=== PATIENT | male | born 1990 | race African-American/Black ===

== ENCOUNTER 2017-12-07 16:54 | Emergency (ER) ==
[2017-12-07 17:04] VITALS: BP 171/100; TEMP 98.8; BMI 24.0
--- NOTE | 2017-12-07 18:16 | ED.PDOC ---
General ED Provider: Dr. CARLA JORGE Chief Complaint: Nausea/Vomiting Stated Complaint: CC: Nausea and Vomiting. HPI: Onset 3 days. Unable to keep liquids down. No solid foods for 3 days. Feeling lousy. Denies cough of congestion. Denies Fever chills or Night sweats Time Seen by Physician: 18:05 Mode of Arrival: Walk-In Information Source: Patient Exam Limitations: No limitations Nursing and Triage Documentation Reviewed and Agree: Yes Reviewed sepsis parameters & appropriate labs ordered?: Yes System Inflammatory Response Syndrome: Not Applicable Sepsis Protocol: For patient's 13 years and over: Temp is 96.8 and below OR 101 and greater Pulse >90 BPM Resp >20/minute Acutely Altered Mental Status Are patient's symptoms suggestive of a new infection, such as: -Pneumonia -Skin, Soft Tissue -Endocarditis -UTI -Bone, Joint Infection -Implantable Device -Acute Abdominal Infection -Wound Infection -Meningitis -Blood Stream Catheter Infection -Unknown GI Complaint Exam - Vomiting/Diarrhea Complaint/Exam Onset/Duration: 3 days Symptoms Are: Still present Episodes of Vomiting over last 24 Hours: 3 Episodes of Diarrhea Over Last 24 Hours: 0 Initial Severity: Severe Current Severity: Moderate Character of Vomiting: Reports: Bilious Aggravating: Reports: Liquids Alleviating: Reports: None Associated Signs and Symptoms: Reports: Light-headedness Related History: Denies: Similar episode, Recent antibiotics Non-GI Risk Factors: Denies: Vomiting due to neuro, Vomiting due to cardiac Surgical Obstruction Risk Factors: Reports: None Related Surgical History: Reports: None Abdominal Findings: Present: None. Absent: Abdominal distention, Rebound tenderness, Peritoneal signs, McBurney's Point tender, CVA Tenderness, Inguinal swelling Kussmaul Respirations Present: No Differential Diagnoses: Bowel Obstruction, Gastritis, Viral Gastroenteritis Review of Systems - Review Of Systems Constitutional: Reports: No symptoms Eyes: Reports: No symptoms Ears, Nose, Mouth, Throat: Reports: No symptoms Respiratory: Reports: No symptoms Cardiac: Reports: No symptoms GI: Reports: No symptoms, Nausea, Poor fluid intake, Vomiting : Reports: No symptoms Musculoskeletal: Reports: No symptoms Skin: Reports: No symptoms Neurological: Reports: No symptoms Endocrine: Reports: No symptoms Hematologic/Lymphatic: Reports: No symptoms All Other Systems: Reviewed and Negative Past Medical History - Past Medical History Previously Healthy: Yes Endocrine: Reports: None Cardiovascular: Reports: None Respiratory: Reports: None Hematological: Reports: None Gastrointestinal: Reports: None Genitourinary: Reports: None Neuro/Psych: Reports: None Musculoskeletal: Reports: None Cancer: Reports: None - Surgical History General Surgical History: Reports: None - Family History Family History: Reports: None - Social History Smoking Status: Never smoker Hx Substance Use: No Alcohol Screening: Occasionally Physical Exam - Physical Exam Appearance: Well-appearing, No pain distress, Well-nourished Eyes: TENZIN, EOMI, Conjunctiva clear ENT: Ears normal, Nose normal, Oropharynx normal Respiratory: Airway patent, Breath sounds clear, Breath sounds equal, Respirations nonlabored Cardiovascular: RRR, Pulses normal, No rub, No murmur GI/: Soft, Nontender, No masses, No Organomegaly, Bowel sounds hyperactive Musculoskeletal: Normal strength, ROM intact, No edema, No calf tenderness Skin: Warm, Dry, Normal color Neurological: Sensation intact, Motor intact, Reflexes intact, Cranial nerves intact, Alert, Oriented Psychiatric: Affect appropriate, Mood appropriate Interpretation - Radiology Interpretation Radiology Interpretation By: Radiologist Radiology Results: No acute changes Xray Comments: abdom xray Re-Evaluation - Re-Evaluation Time of Re-Evaluation: 19:30 Status: Improved Vital Signs Stable: Yes Appearance: NAD Lungs: Clear Skin: Warm and Dry Neuro: Alert and Oriented X3 CV: RRR Additional Comments: req discharge to home-has job interview tomorrow Critical Care Note - Critical Care Note Total Time (mins): 60 (Diagnosis, treatment ) Course - Course Hematology/Chemistry: 12/07/17 18:37 12/07/17 18:37 Orders, Labs, Meds: Lab Review 12/07/17 12/07/17 12/07/17 18:37 18:37 19:37 WBC 10.60 H RBC 5.01 Hgb 15.4 Hct 44.3 MCV 88.4 MCH 30.7 MCHC 34.8 RDW Coeff of Sabrina 12.3 Plt Count 263 Immature Gran % (Auto) 0.4 Neut % (Auto) 72.2 Lymph % (Auto) 21.5 Bell % (Auto) 5.8 Eos % (Auto) 0.0 Baso % (Auto) 0.1 Immature Gran # (Auto) 0.0 Neut # (Auto) 7.7 H Lymph # (Auto) 2.3 Bell # (Auto) 0.6 Eos # (Auto) 0.0 Baso # (Auto) 0.0 Sodium 136 Potassium 3.6 Chloride 101 Carbon Dioxide 23 Anion Gap 15.6 BUN 16 Creatinine 0.90 Estimated GFR (MDRD) 122.00 BUN/Creatinine Ratio 17.77 Glucose 87 Calcium 9.8 Total Bilirubin 0.7 AST 18 ALT 12 Alkaline Phosphatase 104 Total Protein 8.3 H Albumin 4.1 Globulin 4.2 Albumin/Globulin Ratio 0.98 Lipase 11 Urine Color Yellow Urine Clarity Clear Urine pH 6.5 Ur Specific [place] 1.015 Urine Protein Negative Urine Glucose (UA) Negative Urine Ketones 3+ Urine Blood Negative Urine Nitrite Negative Urine Bilirubin Negative Urine Urobilinogen 0.2 Ur Leukocyte Esterase Negative Orders Category Date Time Status ED IV/MEDIPORT/POWERPORT .ONCE EMERGENCY 12/07/17 18:20 Active CBC W/ AUTO DIFF Stat LAB 12/07/17 18:37 Completed CMP [COMPREHENSIVE METABOLIC PANEL] Stat LAB 12/07/17 18:37 Completed LIPASE Stat LAB 12/07/17 18:37 Completed UA [URINALYSIS C & S IF INDICATED] Stat LAB 12/07/17 19:37 Completed 0.9 % Sodium Chloride [Saline Flush] MEDS 12/07/17 18:20 Ordered 1 syr IVF PRN PRN Famotidine Inj [Pepcid] MEDS 12/07/17 18:22 Discontinued 20 mg IVP ONCE STA Ondansetron HCl/Pf [Zofran 4 mg/2 ml] MEDS 12/07/17 18:22 Discontinued 4 mg IVP ONCE STA Sodium Chloride 0.9% [Sodium Chloride] 1,000 ml MEDS 12/07/17 18:20 Active IV BOLUS ABDOMEN, SERIES FLAT & UPRIGHT Stat RADS 12/07/17 18:19 Completed Medications Generic Name Dose Route Start Last Admin Trade Name Freq PRN Reason Stop Dose Admin Sodium Chloride 1,000 mls @ 500 mls/hr 12/07/17 18:20 12/07/17 18:45 Sodium Chloride IV 12/07/17 20:19 500 mls/hr BOLUS STA Administration Sodium Chloride 1 syr 12/07/17 18:20 12/07/17 18:45 Saline Flush IVF 1 syr PRN PRN Administration To flush IV Discontinued Medications Generic Name Dose Route Start Last Admin Trade Name Freq PRN Reason Stop Dose Admin Famotidine 20 mg 12/07/17 18:22 06/14/18 18:44 Pepcid IVP 12/07/17 18:23 20 mg ONCE STA Administration Ondansetron HCl 4 mg 12/07/17 18:22 12/07/17 18:43 Zofran 4 Mg/2 Ml IVP 12/07/17 18:23 4 mg ONCE STA Administration Vital Signs: Temp Pulse Resp BP Pulse Ox 12/07/17 16:55 98.8 F 81 16 171/100 H 98 Departure - Departure Time of Disposition: 20:50 Disposition: HOME SELF-CARE Discharge Problem: Gastroenteritis, Hypertension Instructions: Gastritis (ED), Gastroenteritis (ED) Condition: Good Pt referred to PMD for follow-up: Yes (1 week) IPMP verified?: No Additional Instructions: Continue clear liquids Take zofran as needed for additonal nausea or vomiting advance diet per tolerance Monitor BP as outpatient and follow up with PCP Allergies/Adverse Reactions: Allergies No Known Allergies Allergy (Unverified 12/07/17 16:57) Home Medications: Ambulatory Orders Ondansetron [Zofran Odt] 4 mg PO Q8H PRN #7 tab.rapdis 12/07/17 Disposition Discussed With: Patient
[2017-12-07] MEDS ORDERED: SODIUM CHLORIDE 1,000 ML IV STA (18:20)
[2017-12-07] MEDS ORDERED: PEPCID IVP STA (18:22)
[2017-12-07] MEDS ORDERED: ZOFRAN 4 MG/2 ML IVP STA (18:22)
--- NOTE | 2017-12-07 18:50 | DI ---
EXAM: Two-view abdomen HISTORY: Vomiting COMPARISON: None. FINDINGS: There is a normal-appearing large bowel gas pattern. There is no evidence of mass, abnorm al calcification, obstruction or free air. IMPRESSION: No acute findings
== END 2017-12-07 20:10 | disposition home or self-care (01) ==
LOC: ED 16:54
DX: K52.9 Noninfective gastroenteritis and colitis, unspecified (principal); I10 Essential (primary) hypertension
CPT/HCPCS: 36415; 80053; 81001; 83690; 85025; 96360; 96375; 99283